=== PATIENT | male | born 1975 | race Caucasian/White ===

== ENCOUNTER 2017-01-07 11:44 | Emergency (ER) | payer BC ==
--- NOTE | 2017-01-07 12:31 | RAD ---
LEFT ANKLE 3 VIEWS: HISTORY: Left ankle injury today. COMPARISON: Left ankle radiographs 03/05/14. FINDINGS: No acute fracture or malalignment. Evidence of old injury to the lateral malleolus. Small dorsal calcaneal spur. Mild mid foot degenerative disease. IMPRESSION: 1. Evidence of old injury to lateral malleolus with some erosions as well as heterotopic ossificati on. 2. Mild lateral malleolus soft tissue edema suggestive of ankle sprain. POS: JEREMIAS
== END 2017-01-07 12:45 | disposition home or self-care (01) ==
LOC: BURERS 11:44
DX: S93.402A Sprain of unspecified ligament of left ankle, initial encounter (principal); F41.9 Anxiety disorder, unspecified; F32.9 Major depressive disorder, single episode, unspecified; Z79.899 Other long term (current) drug therapy; W17.89XA Other fall from one level to another, initial encounter